=== PATIENT | male | born 1965 | race Caucasian/White ===

== ENCOUNTER 2023-01-23 09:06 | Emergency (ER) | payer OTHER ==
[~2023-01-23] VITALS: Ht 177.8 cm; Wt 88.6 kg
[2023-01-23] MEDS ORDERED: ketorolac trometh inj. 60 MG/2 ML VIAL IM ONE (14:25)
[2023-01-23 15:05] VITALS: BP 122/82
== END 2023-01-23 15:08 | disposition home or self-care (01) ==
LOC: ER 09:07
DX: M79.604 Pain in right leg (principal); Z88.5 Allergy status to narcotic agent; W19.XXXA Unspecified fall, initial encounter; Y93.89 Activity, other specified; Y92.89 Other specified places as the place of occurrence of the external cause; Y99.8 Other external cause status
CPT/HCPCS: 73552; 96372; 99285; J1885; A6449